=== PATIENT | male | born 1970 | race Caucasian/White ===

== ENCOUNTER 2018-02-13 12:22 | Emergency (ER) | payer OTHER ==
[~2018-02-13] VITALS: Ht 182.9 cm; Wt 100.0 kg
[2018-02-13 17:03] VITALS: BP 111/61
== END 2018-02-13 17:04 | disposition home or self-care (01) ==
LOC: ER 12:22
DX: M25.552 Pain in left hip (principal); M25.562 Pain in left knee; W01.0XXA Fall on same level from slipping, tripping and stumbling without subsequent striking against object, initial encounter; Y93.89 Activity, other specified; Y92.89 Other specified places as the place of occurrence of the external cause; Y99.8 Other external cause status
CPT/HCPCS: 73502; 73552; 73560; 99284